=== PATIENT | female | born 1980 | race Hispanic/Latino ===

== ENCOUNTER 2016-12-23 19:21 | Emergency (ER) | payer SELFPAY ==
[~2016-12-23] VITALS: Ht 165.1 cm; Wt 123.6 kg
[~2016-12-23 19:21] MED LIST: AMOXICILLIN/CL875 MG PO; FLONASE NASAL50 MCG; MUCINEX600 MG PO; NO HOME MEDS; PHENTERMINE30 MG PO; ZOFRAN ODT8 MG SL
[2016-12-23 21:22] LABS: INFLUENZA A NONE DETECTED (NONE DETECT); INFLUENZA B NONE DETECTED (NONE DETECT)
[2016-12-23] MEDS ORDERED: AMOXICILLIN500 MG PO (21:52)
[2016-12-23 22:03] VITALS: BP 127/93
== END 2016-12-23 22:03 | disposition home or self-care (01) | DRG 153 ==
LOC: ED 19:21
PROVIDERS: Emergency Medicine
DX: J02.0 Streptococcal pharyngitis (principal)

== ENCOUNTER 2020-03-14 18:48 | Emergency (ER) | payer OTHER ==
[~2020-03-14] VITALS: Ht 165.1 cm; Wt 117.0 kg
[~2020-03-14 18:48] MED LIST changes: +AMOXICILLIN500 MG PO
[2020-03-14] MEDS ORDERED: MULTIVITAMI9 PO (19:30)
[2020-03-14] MEDS ORDERED: LISINOPRIL20 MG PO (19:31)
[2020-03-14] MEDS ORDERED: MICROZIDE PO (19:31)
[2020-03-14] MEDS ORDERED: LISINOPRIL10 MG PO (19:59)
[2020-03-14 20:31] LABS: URINE BILIRUBIN - DIPSTICK NEGATIVE (NEGATIVE); URINE BLOOD DIPSTICK LARGE (NEGATIVE); URINE COLOR YELLOW; URINE GLUCOSE - DIPSTICK NEGATIVE (NEGATIVE); URINE KETONE NEGATIVE (NEGATIVE); URINE LEUK ESTERASE NEGATIVE (NEGATIVE); URINE NITRITE - DIPSTICK NEGATIVE (Negative); URINE PROTEIN - DIPSTICK NEGATIVE (NEG-TRACE); URINE SPECIFIC GRAVITY 1.015
[2020-03-14 20:41] LABS: URINE SQUAMOUS EPITHELIAL CELL FEW EPI/hpf (0-FEW); URINE WBC 0-2 WBC/hpf (0-5)
[2020-03-14 20:49] LABS: HEMATOCRIT 36.8 % (37.0-47.0); MEAN CELL VOLUME 86.4 fL CALC (80.0-100.0); MEAN CORPUSCULAR HGB 26.3 pG CALC (26.0-32.0); MEAN CORPUSCULAR HGB CONC 30.4 g/dL CAL (32.0-36.0); NEUT# 3.53 thou/uL (2.00-7.15); RED BLOOD COUNT 4.26 mill/uL (4.20-5.60)
[2020-03-14 20:50] LABS: HEMOGLOBIN 11.2 g/dl (12.0-16.0)
[2020-03-14 21:14] LABS: ALBUMIN 3.7 g/dL (3.2-5.0); ALKALINE PHOSPHATASE 94 u/l (38-126); AMYLASE 53 u/l (30-110); ANION GAP 12 (6-22 (CALC)); BILIRUBIN, TOTAL 0.4 mg/dL (0.0-1.4); BUN 6 mg/dL (7-17); BUN/CREATININE RATIO 12 (12-20 (CALC)); CARBON DIOXIDE 24 mmol/l (22-30); CHLORIDE 105 mmol/l (95-108); CREATININE 0.5 mg/dL (0.5-1.0); GFR > 60 ML/MIN (>=60 (CALC)); GFR FOR AFR.AMER. > 60 ML/MIN (>=60 (CALC)); LIPASE 111 u/l (23-300); POTASSIUM 3.7 mmol/l (3.5-5.1); SGOT/AST 22 u/l (14-36); SODIUM 138 mmol/l (137-146); TOTAL PROTEIN 7.2 g/dL (6.3-8.2)
[2020-03-14] MEDS ORDERED: CIPROFLOXACN500 MG PO (23:18)
[2020-03-14] MEDS ORDERED: LOMOTIL2.5 MG PO (23:18)
[2020-03-14 23:50] VITALS: BP 148/82
== END 2020-03-14 23:50 | disposition home or self-care (01) ==
LOC: ED 18:48
PROVIDERS: Emergency Medicine
DX: K52.9 Noninfective gastroenteritis and colitis, unspecified (principal); I10 Essential (primary) hypertension; Z20.822 Contact with and (suspected) exposure to COVID-19
CPT/HCPCS: Q9967